=== PATIENT | male | born 2000 | race Caucasian/White ===

== ENCOUNTER 2020-10-17 22:34 | Emergency (ER) | payer OTHER, SELFPAY ==
[2020-10-17 22:43] VITALS: BP 109/64; PULSE 92; RESP 18; TEMP 37.4; O2SAT 97; BMI 25.0
[2020-10-17 23:16] LABS: COVID19 -Nasal RAPID Negative (Negative)
--- NOTE | 2020-10-17 23:37 | ED_ITS ---
HPI - General Adult General Chief complaint: Fever Stated complaint: fever, headache Time Seen by Provider: 10/17/20 23:37 Source: patient Mode of arrival: Ambulatory Limitations: no limitations History of Present Illness HPI narrative: Patient is a 20-year-old male here for evaluation of a headache and fever and a dry throat and sinus congestion and a dry cough. Symptoms have been going on for approximately 24 hours. Has not tried anything for symptoms prior to arrival. No neck pain. Related Data Allergies Allergy/AdvReac Type Severity Reaction Status Date / Time No Known Drug Allergies Allergy Verified 10/17/20 22:43 Review of Systems Constitutional Constitutional: Reports fever(s) ENT Comments: Sore throat/dry throat Respiratory Comments: Cough Gastrointestinal Comments: No vomiting Integumentary/Breasts Comments: No rashes Neurologic Neurologic: Reports system reviewed and no additional complaints, except as documented Hematologic/Lymphatic On Anticoagulants: No Patient History Medical History Healthy adult Social History Smoking Status: Never smoker Smoking Status: Never smoker Substance Use Type: does not use Exam Initial Vital Signs Initial Vital Signs: Vital Signs Temperature 99.4 F 10/17/20 22:43 Pulse Rate 92 H 10/17/20 22:43 Respiratory Rate 18 10/17/20 22:43 Blood Pressure 109/64 10/17/20 22:43 Pulse Oximetry 97 10/17/20 22:43 Const General: cooperative, healthy appearing and comfortable HENMT Head: normal to inspection and normocephalic Ears: TM's normal bilaterally Eyes General: appearance normal, both eyes and all related structures Resp Effort & Inspection: normal respiratory effort Auscultation: clear to auscultation bilaterally Cardio Rate: regular rate Rhythm: regular rhythm Skin General: no rashes or lesions noted Neuro General: patient alert, patient awake, patient oriented x3 and moves all extremities Extrem General: normal to inspection and capillary refill normal Psych Appearance: grossly normal Course Orders Ordered: ED Orders 10/17/20 22:45 COVID19 -Nasal swab/Pre-Proc Stat Vital Signs Vital signs: Vital Signs - 8 hr 10/17/20 22:43 Temperature 99.4 F Pulse Rate 92 H Respiratory Rate 18 Blood Pressure 109/64 Pulse Oximetry 97 Medical Decision Making Lab Data Lab results reviewed: Yes I reviewed the patient's lab results. Labs: Lab Results 10/17/20 Range/Units 22:45 SARS-CoV-2 (PCR) Negative (Negative) MDM Narrative Medical decision making narrative: Patient is not toxic appearing. I have low suspicion for meningitis given his presentation today. His COVID was negative. He has findings consistent with an upper respiratory infection and postnasal drip. I did discuss this with him. No indication for antibiotics. He was g iven return precautions and follow-up instructions. He expressed understanding and agreement. Discharge Plan Departure Patient Disposition: Home Clinical Impression: Headache, Upper respiratory infection Instructions: DI for Viral Upper Respiratory Infection -- Adult Activity Restrictions/Additional Instructions: Recommend that you continue to take Tylenol/ibuprofen for any fevers or headaches. I also recommend that you start taking an antihistamine such as Claritin or Rama or Zyrtec. You can purchase these [id number]. Contact your primary provider for follow-up. Return to the emergency department for any new or worsening symptoms Stand Alone Forms: Work Release Note
== END 2020-10-17 23:45 | disposition home or self-care (01) ==
PROVIDERS: Emergency Provider Emergency Medicine
DX: J06.9 Acute upper respiratory infection, unspecified (principal); R51.9 Headache, unspecified; R50.9 Fever, unspecified; Z20.822 Contact with and (suspected) exposure to COVID-19
CPT/HCPCS: 87635; 99281; 99282; C9803